=== PATIENT | male | born 1980 | race Hispanic/Latino ===

== ENCOUNTER 2021-09-16 19:11 | Emergency (ER) | payer SELFPAY ==
[~2021-09-16] VITALS: Ht 170.2 cm; Wt 70.0 kg
[~2021-09-16 19:11] MED LIST: ULTRAM50 M1 PO
[2021-09-16] MEDS ORDERED: KEFLEX500 MG PO (22:19)
[2021-09-16 23:05] VITALS: BP 170/83
== END 2021-09-16 23:05 | disposition home or self-care (01) | DRG 914 ==
LOC: ED 19:11
DX: S68.621A Partial traumatic transphalangeal amputation of left index finger, initial encounter (principal); W31.9XXA Contact with unspecified machinery, initial encounter; Y92.89 Other specified places as the place of occurrence of the external cause; Y99.0 Civilian activity done for income or pay